=== PATIENT | male | born 1950 | race Caucasian/White ===

== ENCOUNTER 2018-02-28 11:35 | Observation (INO) | payer MEDICARE ==
[~2018-02-28] VITALS: Ht 183 cm; Wt 114.3 kg
[2018-02-28] VITALS (16 sets, daily range): BP systolic 86–197; BP diastolic 50–73; PULSE 54–83; TEMP 97.5–98.7
[~2018-02-28 11:35] MED LIST: ASPIRIN E.C. 8181 MG PO; FLOMAX 0.40.4 MG/CAP PO; HCTZ 25MG25 MG PO; METHYLSULFONYLMETHAN; MVI; NAPROXEN EC500 MG PO; SAW PALMETTO160 MG PO
[2018-02-28] MEDS ORDERED: TOPROL XL 25MG25 MG PO (12:35)
[2018-02-28] MEDS ORDERED: ZOCOR 20MG20 MG PO (12:35)
[2018-02-28] MEDS ORDERED: HYZAAR 50-12.1 UDTAB PO (12:35)
[2018-02-28 12:42] LABS: HEMOGLOBIN 11.4 g/dl (13.5-18.0); MEAN CELL VOLUME 84 fl (80.0-100.0); MEAN CORPUSCULAR HEMOGLOBIN 27 pg (27.0-31.0); MEAN CORPUSCULAR HGB CONC 32 g/dl (33.0-37.0); MEAN PLATELET VOLUME 9.9 fl (7.4-10.4); PLATELET COUNT 317 K/mm3 (130-400); RED BLOOD COUNT 4.22 M/mm3 (4.20-5.60); REDCELL DISTRIBUTION WIDTH-CV 15.9 % (11.5-14.5)
[2018-02-28 12:43] LABS: HEMATOCRIT 35.6 % (42.0-52.0); PROTHROMBIN TIME 11.8 SECONDS (9.7-12.8)
[2018-02-28 12:53] LABS: CREATININE, serum 1.41 mg/dL (0.66-1.25)
[2018-03-01] VITALS: BP 126/73; PULSE 65; TEMP 97.5
[2018-03-01 04:00] VITALS: BP 160/92; PULSE 83; TEMP 99.8
[2018-03-01 05:42] LABS: BASO % 0.5 % (0.0-2.0); EOS # 0.2 (0.0-0.7); EOS % 2.2 % (0-4.0); GRAN # 6.1 (1.4-6.5); GRAN % 69.1 % (42.2-75.2); HEMATOCRIT 33.2 % (42.0-52.0); HEMOGLOBIN 10.6 g/dl (13.5-18.0); LYMPH # 1.7 (1.2-3.4); MEAN CELL VOLUME 85 fl (80.0-100.0); MEAN CORPUSCULAR HEMOGLOBIN 27 pg (27.0-31.0); MEAN CORPUSCULAR HGB CONC 32 g/dl (33.0-37.0); MEAN PLATELET VOLUME 9.9 fl (7.4-10.4); MONO # 0.8 (0.1-0.6); MONO % 8.5 % (1.7-9.3); PLATELET COUNT 285 K/mm3 (130-400); RED BLOOD COUNT 3.93 M/mm3 (4.20-5.60)
[2018-03-01 05:54] LABS: CALCIUM 8.6 mg/dL (8.4-10.2); CREATININE, serum 1.23 mg/dL (0.66-1.25); POTASSIUM 3.6 mmol/L (3.4-5.0)
[2018-03-01 08:00] VITALS: BP 117/91; PULSE 83; TEMP 98
[2018-03-01] MEDS ORDERED: BRILINTA90 MG PO (09:54)
[2018-03-01] MEDS ORDERED: NITROSTAT0.4 MG/TAB SL (09:55)
[2018-03-01] MEDS ORDERED: LIPITOR20 MG PO (09:55)
[2018-03-01] MEDS ORDERED: TYLENOL 325MG325 MG PO (09:56)
== END 2018-03-01 11:20 | disposition home or self-care (01) ==
LOC: COL.CAR 11:35 → ICU 15:05 → COL.CAR 15:45 → ICU 15:46
PROVIDERS: Internal Medicine Cardiovascular Disease
DX: I25.110 Atherosclerotic heart disease of native coronary artery with unstable angina pectoris (principal); I48.0 Paroxysmal atrial fibrillation; E78.5 Hyperlipidemia, unspecified; I11.0 Hypertensive heart disease with heart failure; N18.9 Chronic kidney disease, unspecified; F17.210 Nicotine dependence, cigarettes, uncomplicated; Z79.82 Long term (current) use of aspirin; E66.9 Obesity, unspecified; Z83.3 Family history of diabetes mellitus; Z80.9 Family history of malignant neoplasm, unspecified
CPT/HCPCS: C9600; J0583; J1200; J1644; J2250; J3010; J7030; Q9967

== ENCOUNTER 2018-03-20 10:36 | Day surgery (SDC) | payer MEDICARE, OTHER ==
[2018-03-20] VITALS (569 sets, daily range): BP systolic 87–128; BP diastolic 56–85; PULSE 57–81; TEMP 97.8–98.1; O2SAT 88–100
[~2018-03-20] VITALS: Ht 183.2 cm; Wt 114.8 kg
[~2018-03-20 10:36] MED LIST changes: +BRILINTA90 MG PO; +HYZAAR 50-12.1 UDTAB PO; +LIPITOR20 MG PO; +NITROSTAT0.4 MG/TAB SL; +TOPROL XL 25MG25 MG PO; +TYLENOL 325MG325 MG PO; +ZOCOR 20MG20 MG PO
[2018-03-20 11:19] LABS: MEAN CELL VOLUME 84 fl (80.0-100.0); MEAN CORPUSCULAR HGB CONC 31 g/dl (33.0-37.0); MEAN PLATELET VOLUME 9.9 fl (7.4-10.4); PLATELET COUNT 433 K/mm3 (130-400); RED BLOOD COUNT 3.72 M/mm3 (4.20-5.60); REDCELL DISTRIBUTION WIDTH-CV 16.1 % (11.5-14.5)
[2018-03-20 11:21] LABS: HEMATOCRIT 31.2 % (42.0-52.0); HEMOGLOBIN 9.8 g/dl (13.5-18.0); MEAN CORPUSCULAR HEMOGLOBIN 26 pg (27.0-31.0)
[2018-03-20 11:24] LABS: ALBUMIN 4.2 gm/dL (3.5-5.0); BILIRUBIN,TOTAL 0.6 mg/dL (0.0-1.0); CALCIUM 9.2 mg/dL (8.4-10.2); CREATININE, serum 1.34 mg/dL (0.66-1.25); MAGNESIUM 2.1 mg/dL (1.6-2.3); POTASSIUM 3.9 mmol/L (3.4-5.0); TOTAL PROTEIN 7.5 gm/dL (6.4-8.2)
[2018-03-20 11:27] LABS: INR 1.1 (0.8-3.0); PROTHROMBIN TIME 12.6 SECONDS (9.7-12.8)
[2018-03-20] MEDS ORDERED: LIPITOR20 MG PO (11:29)
[2018-03-20] MEDS ORDERED: IMDUR 30MG30 MG/TAB PO (11:35)
[2018-03-20] MEDS ORDERED: BRILINTA90 MG PO (11:35)
[2018-03-21] VITALS (652 sets, daily range): BP systolic 107–133; BP diastolic 68–82; PULSE 66–74; TEMP 97.6; O2SAT 92–100
[2018-03-21 07:20] LABS: BASO % 0.6 % (0.0-2.0); EOS # 0.3 (0.0-0.7); EOS % 3.6 % (0-4.0); GRAN # 4.9 (1.4-6.5); LYMPH # 1.2 (1.2-3.4); LYMPH % 16.4 % (20.0-51.0); MEAN CELL VOLUME 83 fl (80.0-100.0); MEAN CORPUSCULAR HGB CONC 32 g/dl (33.0-37.0); MEAN PLATELET VOLUME 9.8 fl (7.4-10.4); MONO # 0.7 (0.1-0.6); MONO % 9.7 % (1.7-9.3); RED BLOOD COUNT 3.31 M/mm3 (4.20-5.60); REDCELL DISTRIBUTION WIDTH-CV 16.2 % (11.5-14.5)
[2018-03-21 07:24] LABS: HEMATOCRIT 27.6 % (42.0-52.0); HEMOGLOBIN 8.8 g/dl (13.5-18.0); MEAN CORPUSCULAR HEMOGLOBIN 27 pg (27.0-31.0); PLATELET COUNT 320 K/mm3 (130-400)
[2018-03-21 07:26] LABS: CALCIUM 8.8 mg/dL (8.4-10.2); CREATININE, serum 1.23 mg/dL (0.66-1.25); MAGNESIUM 2.2 mg/dL (1.6-2.3); POTASSIUM 4.3 mmol/L (3.4-5.0)
== END 2018-03-21 12:45 | disposition home or self-care (01) ==
LOC: COL.CAR 10:36 → ICU 12:58 → COL.CAR 14:24 → ICU 14:24 → COL.CAR 03-21 12:45 → ICU 03-21 12:45
PROVIDERS: Internal Medicine Cardiovascular Disease
DX: I25.110 Atherosclerotic heart disease of native coronary artery with unstable angina pectoris (principal); I10 Essential (primary) hypertension; Z95.5 Presence of coronary angioplasty implant and graft; E78.5 Hyperlipidemia, unspecified; Z79.82 Long term (current) use of aspirin; Z79.899 Other long term (current) drug therapy; Z87.891 Personal history of nicotine dependence
CPT/HCPCS: C9600; J0583; J1200; J1644; J2250; J3010; J7040; Q9967

== ENCOUNTER 2018-03-30 12:34 | Inpatient (IN) | payer MEDICARE, OTHER ==
[2018-03-30] VITALS (7 sets, daily range): BP systolic 96–138; BP diastolic 44–94; PULSE 63–112; TEMP 97.7–98.8
[~2018-03-30] VITALS: Ht 180.3 cm; Wt 121.9 kg
[~2018-03-30 12:34] MED LIST changes: +IMDUR 30MG30 MG/TAB PO
[2018-03-30 13:00] LABS: BASO % 0.5 % (0.0-2.0); EOS # 0.2 (0.0-0.7); EOS % 2.3 % (0-4.0); GRAN # 6.7 (1.4-6.5); GRAN % 75.8 % (42.2-75.2); LYMPH # 1.3 (1.2-3.4); LYMPH % 14.2 % (20.0-51.0); MEAN CELL VOLUME 84 fl (80.0-100.0); MEAN CORPUSCULAR HGB CONC 31 g/dl (33.0-37.0); MEAN PLATELET VOLUME 9.6 fl (7.4-10.4); MONO # 0.6 (0.1-0.6); MONO % 6.5 % (1.7-9.3); PLATELET COUNT 385 K/mm3 (130-400); RED BLOOD COUNT 2.91 M/mm3 (4.20-5.60); REDCELL DISTRIBUTION WIDTH-CV 16.2 % (11.5-14.5)
[2018-03-30 13:02] LABS: HEMATOCRIT 24.5 % (42.0-52.0); HEMOGLOBIN 7.5 g/dl (13.5-18.0); MEAN CORPUSCULAR HEMOGLOBIN 26 pg (27.0-31.0)
[2018-03-30 13:13] LABS: ALANINE AMINOTRANSFERASE 25 U/L (21-72); ALKALINE PHOSPHATASE 98 U/L (50-136); ANION GAP 10 mmol/L (7-16); AST,SGOT 22 U/L (15-37); BILIRUBIN,TOTAL 0.5 mg/dL (0.0-1.0); BLOOD UREA NITROGEN 15 mg/dL (9-20); CALCIUM 8.9 mg/dL (8.4-10.2); CARBON DIOXIDE 21 mmol/L (22-30); CHLORIDE 109 mmol/L (98-107); CREATININE, serum 1.24 mg/dL (0.66-1.25); GLUCOSE 119 mg/dL (74-106); POTASSIUM 3.9 mmol/L (3.4-5.0); SODIUM 140 mmol/L (137-145); TOTAL PROTEIN 7.1 gm/dL (6.4-8.2)
[2018-03-30 13:25] LABS: TROPONIN-I < 0.012 ng/mL (0.000-0.034)
--- NOTE | 2018-03-30 18:18 | NUR ---
Completed intake with PT; assessment completed during intake. Lungs CTA bilaterally, HRRR, A&Ox3, bowel sounds audible x4, NKA, admitted on RA, IND in all cares, IV RT FA with NS @ 125mg, full code, and arrived on clear liquid diet. PT admitted with anemia and chest pain. PT has history of heart cath with stent placement approximately 1 week ago. Ortho static BP+ result in ER. Type/cross completed for pending 1 unit blood order. PT had c/o dizziness, weakness, soreness, and pressure in chest. Minimal non-pitting edema to bilateral LE. Accult blood + in stool specimen. Plan to observe for 2-3days with new cardiology and gastrology consults; pending blood administration. Patient arrived on floor to room 310 at approximately 1705. CDA
--- NOTE | 2018-03-30 18:45 | NUR ---
tele called, pt went into AFIB with RVR, this nurse odered an EKG NOW. vitals were assessed and stable. pt has no signs or symtoms. EKG came back normal sinus rythm . will coninue to monitor.
--- NOTE | 2018-03-30 22:00 | NUR ---
Consent signed- Blood transfusion started at 60cc/hr-nurse in room with pt for the first 15 minutes, will continue to monitor, VSS
--- NOTE | 2018-03-30 23:10 | NUR ---
Pt resting. no c/o pain or soa. pt is recieving blood transfursion. will continue to monitor. shift assessment complete. no needs at this time, calll light in reach
[2018-03-31] VITALS (9 sets, daily range): BP systolic 102–139; BP diastolic 56–71; PULSE 55–83; TEMP 97.6–98.6
--- NOTE | 2018-03-31 00:17 | NUR ---
Blood completed- no adverse reactions- pt tolerated well.
[2018-03-31 01:06] LABS: HEMOGLOBIN 7.7 g/dl (13.5-18.0)
[2018-03-31 01:07] LABS: HEMATOCRIT 24.5 % (42.0-52.0)
[2018-03-31 06:07] LABS: BASO % 0.6 % (0.0-2.0); EOS # 0.2 (0.0-0.7); EOS % 3.6 % (0-4.0); GRAN # 4.3 (1.4-6.5); GRAN % 65.1 % (42.2-75.2); LYMPH # 1.3 (1.2-3.4); LYMPH % 19.9 % (20.0-51.0); MEAN CELL VOLUME 85 fl (80.0-100.0); MEAN CORPUSCULAR HGB CONC 31 g/dl (33.0-37.0); MEAN PLATELET VOLUME 9.7 fl (7.4-10.4); MONO # 0.7 (0.1-0.6); MONO % 9.9 % (1.7-9.3); PLATELET COUNT 307 K/mm3 (130-400); RED BLOOD COUNT 2.99 M/mm3 (4.20-5.60); REDCELL DISTRIBUTION WIDTH-CV 16.1 % (11.5-14.5)
[2018-03-31 06:08] LABS: HEMATOCRIT 25.5 % (42.0-52.0); HEMOGLOBIN 7.8 g/dl (13.5-18.0); MEAN CORPUSCULAR HEMOGLOBIN 26 pg (27.0-31.0)
[2018-03-31 06:22] LABS: ANION GAP 5 mmol/L (7-16); BLOOD UREA NITROGEN 15 mg/dL (9-20); CALCIUM 8.8 mg/dL (8.4-10.2); CARBON DIOXIDE 24 mmol/L (22-30); CHLORIDE 111 mmol/L (98-107); CREATININE, serum 1.19 mg/dL (0.66-1.25); GLUCOSE 132 mg/dL (74-106); POTASSIUM 4.5 mmol/L (3.4-5.0); SODIUM 140 mmol/L (137-145)
[2018-03-31 06:29] LABS: TROPONIN-I < 0.012 ng/mL (0.000-0.034)
--- NOTE | 2018-03-31 08:56 | NUR ---
Completed morning assessment. PT denied pain or discomfort during morning assessment. PT able to answer all assessment question; PT able to take morning medication without complaints. PT continues to follow clear liquid diet. Pending administration of 1 unit of blood. PT denies questions or concern about pending blood administration. A&Ox3, Lungs CTA, BS audible x4, ind in room, 20g IV to RT wrist patent with 30mL/H NS running, and continent of both bowel and bladder. PT able to verbalize concerns, although denies questions or pain at time of exit. Will continue to monitor.
--- NOTE | 2018-03-31 09:44 | NUR ---
1 unit of 0 neg blood started per order; VS and blood verified with second nurse. Blood intiated at 60mL/h with NS at 30mL/h to 20G RT wrist IV; PT tolerated well during first 15 minutes. Remained with patient for observation during first 20 minutes of administration. VS documented; rate increased to 100mL/h after initial 15 minute period. CDA
--- NOTE | 2018-03-31 12:25 | NUR ---
PT completed one unit 0 NEG blood transfusion; no adverse reactions or reported discomforts. Patient tolerating post transfusion cares well. Pending 4 hour post CBC draw at approximately 1630. Will continue to monitor. CDA
--- NOTE | 2018-03-31 16:06 | NUR ---
Plan: To return home alone. Not opposed to homehealth services if needed. Action: OCO is Dr. Karl Aguilar. RX obt from [facility] in [place].EMr contact [place] . RX obta through [facility]. No DME reported. Alt Contact: Angi Aleman . Action: No addtional service needs identified.
--- NOTE | 2018-03-31 16:26 | NUR ---
PT resting well in upright position in chair. Spouse stopped in to discuss medication recon; no changes made at this time. Verfied contact information with spouse. No significant changes during care time to this point. Will continue to monitor and administer medication as scheduled. CDA
--- NOTE | 2018-03-31 16:40 | NUR ---
PT tolerated care well remainder of day. No reported or observed adverse effects to blood received. RT FA 20G IV running NS at 30mL/H; site has no S/S of redness, warmth, or swelling. PT toileting well; pending GI colon/endoscopy on Monday for investigation of occult blood in stool. No further concerns at this time. Will continue to monitor and administer medication as ordered. CDA
[2018-03-31 16:44] LABS: BASO % 0.6 % (0.0-2.0); EOS # 0.2 (0.0-0.7); EOS % 3.6 % (0-4.0); GRAN # 3.9 (1.4-6.5); GRAN % 60.9 % (42.2-75.2); LYMPH # 1.6 (1.2-3.4); MEAN CELL VOLUME 84 fl (80.0-100.0); MEAN CORPUSCULAR HGB CONC 32 g/dl (33.0-37.0); MEAN PLATELET VOLUME 9.6 fl (7.4-10.4); MONO # 0.6 (0.1-0.6); MONO % 9.1 % (1.7-9.3); PLATELET COUNT 297 K/mm3 (130-400)
[2018-03-31 16:47] LABS: HEMATOCRIT 28.7 % (42.0-52.0); HEMOGLOBIN 9.1 g/dl (13.5-18.0); MEAN CORPUSCULAR HEMOGLOBIN 27 pg (27.0-31.0)
--- NOTE | 2018-03-31 22:00 | NUR ---
pt resting in bed A+Ox4. reports no pain. shift assessment complete. no needs at this time. call light reach
[2018-04-01 01:17] VITALS: BP 132/61; PULSE 65; TEMP 97.8
[2018-04-01 03:22] VITALS: BP 137/78; PULSE 70; TEMP 97.7
--- NOTE | 2018-04-01 05:46 | NUR ---
pt had an unevenful night. reported sleeping off an on throughout night. no pain. no neeeds at this time. call light in reach
[2018-04-01 07:04] LABS: MEAN CELL VOLUME 85 fl (80.0-100.0); MEAN CORPUSCULAR HGB CONC 31 g/dl (33.0-37.0); MEAN PLATELET VOLUME 9.8 fl (7.4-10.4); PLATELET COUNT 305 K/mm3 (130-400); RED BLOOD COUNT 3.35 M/mm3 (4.20-5.60); REDCELL DISTRIBUTION WIDTH-CV 16.1 % (11.5-14.5)
[2018-04-01 07:06] LABS: HEMATOCRIT 28.4 % (42.0-52.0); HEMOGLOBIN 8.9 g/dl (13.5-18.0); MEAN CORPUSCULAR HEMOGLOBIN 27 pg (27.0-31.0)
[2018-04-01 07:22] LABS: CALCIUM 8.6 mg/dL (8.4-10.2); CREATININE, serum 1.18 mg/dL (0.66-1.25)
[2018-04-01 07:49] VITALS: BP 126/67; PULSE 64; TEMP 98.2
--- NOTE | 2018-04-01 10:09 | NUR ---
Pt resting in bed with call light within reach; assessment complete and charted. Plan for EGD/Colonoscopy tomorrow. Orders received from Dr. Harley over the phone. Denies further needs at this time; will continue to monitor.
[2018-04-01 11:22] VITALS: BP 127/70; PULSE 59; TEMP 97.6
[2018-04-01 15:12] VITALS: BP 129/73; PULSE 62; TEMP 98.3
--- NOTE | 2018-04-01 17:28 | NUR ---
Pt resting in bed with call light within reach. Plan for EGD/Colonoscopy tomorrow at 1300. Anesthesia and supervisor cook house notified earlier today. Bowel prep started per orders. Pt denies further needs.
--- NOTE | 2018-04-01 19:03 | NUR ---
Report given to ERNST Pike. Pt resting in bed.
[2018-04-01 20:33] VITALS: BP 132/84; PULSE 75; TEMP 98.1
[2018-04-02 00:16] VITALS: BP 135/83; PULSE 68; TEMP 97.5
--- NOTE | 2018-04-02 01:50 | NUR ---
THE PT WAS BEDRESTING WITH TV ON THE SHIFT BEGAN. HE SLOWLY STEADILY DRINKS HIS BOWEL PREP, REPORTED MULTIPLE WATERY, BLACKISH GREEN ELIMINATIONS. HE IS AWARE THAT HE WILL HAVE THE EGD\COLONOSCOPY ABOUT 1 PM TOMORROW AND THAT HIS PREP NEEDS TO BE FINISHED IN A TIMELY MANNNER. NS AT 30CC TO RIGHT FORE ARM. VSS, TELE CONTINUES WITH SR BBB. HE APPEARS TO GET ADEQUATE SLEEP.
--- NOTE | 2018-04-02 03:14 | NUR ---
THE PT VERBALIZED THAT HIS LAST BOWEL ELIMINATION WAS ABOUT 0030, CONTINUED BLACKISH WATER. SPLIT PREP WILL CONTINUE IN THE AM.
[2018-04-02 03:54] VITALS: BP 125/67; PULSE 77
--- NOTE | 2018-04-02 05:06 | NUR ---
BEDRESTING WITH EYES CLOSED, RESP EVEN
--- NOTE | 2018-04-02 07:21 | NUR ---
THE PT WAS INTRODUCED TO [facility], REPORT EXCHANGED. THE PT APPEARS TO HAVE HAD A GOOD NIGHT.
--- NOTE | 2018-04-02 08:02 | NUR ---
Assessment complete.patient awake,a/ox4.denies pain or discomfort at this time.breathing even and unlabored.all meds given.patient continues on bowel prep for EGD colonscopy.patient denies bloody stools.no concerns voiced at this time.call light in reach
[2018-04-02 08:16] VITALS: BP 125/69; PULSE 61; TEMP 98
[2018-04-02 10:06] LABS: MEAN CELL VOLUME 85 fl (80.0-100.0); MEAN CORPUSCULAR HGB CONC 31 g/dl (33.0-37.0); MEAN PLATELET VOLUME 9.5 fl (7.4-10.4); PLATELET COUNT 290 K/mm3 (130-400); RED BLOOD COUNT 3.29 M/mm3 (4.20-5.60)
[2018-04-02 10:40] LABS: HEMATOCRIT 28.1 % (42.0-52.0); HEMOGLOBIN 8.7 g/dl (13.5-18.0); MEAN CORPUSCULAR HEMOGLOBIN 26 pg (27.0-31.0)
[2018-04-02 12:16] VITALS: BP 131/76; PULSE 61; TEMP 97.8
--- NOTE | 2018-04-02 15:32 | NUR ---
patient returned to room from OR.resting in bed at this time.denies any needs.will continue to monitor.call light in reach
[2018-04-02 16:58] VITALS: BP 123/79; PULSE 79; TEMP 98
--- NOTE | 2018-04-02 18:41 | NUR ---
report given to ERNST Wills.patient reports one dark stool.no bright red stool noted.no other concerns voiced.
[2018-04-02 19:08] VITALS: BP 139/80; PULSE 77; TEMP 98.5
--- NOTE | 2018-04-02 22:11 | NUR ---
pt resting in bed. reports no pain no soa. pt reports liquid stool at 0900 today. shift assessment complete. pt reports no needs at this time. call light in reach.
[2018-04-03] VITALS (7 sets, daily range): BP systolic 109–153; BP diastolic 55–82; PULSE 56–92; TEMP 97.4–98.5
--- NOTE | 2018-04-03 01:39 | NUR ---
pt resting in bed. reports no pain. ERNST Verdin started new IV in left hand, removed IV, catheter intact. reports no needs, call light inreach
--- NOTE | 2018-04-03 05:42 | NUR ---
pt had an uneventful night. no pain. no needs at this time. call light in reach
[2018-04-03 06:15] LABS: MEAN CELL VOLUME 84 fl (80.0-100.0); MEAN CORPUSCULAR HGB CONC 32 g/dl (33.0-37.0); MEAN PLATELET VOLUME 9.9 fl (7.4-10.4); PLATELET COUNT 335 K/mm3 (130-400); RED BLOOD COUNT 3.46 M/mm3 (4.20-5.60); REDCELL DISTRIBUTION WIDTH-CV 16.3 % (11.5-14.5)
[2018-04-03 06:17] LABS: HEMATOCRIT 29.2 % (42.0-52.0); HEMOGLOBIN 9.2 g/dl (13.5-18.0); MEAN CORPUSCULAR HEMOGLOBIN 27 pg (27.0-31.0)
--- NOTE | 2018-04-03 07:18 | NUR ---
reports given to ERNST Carranza
--- NOTE | 2018-04-03 07:33 | NUR ---
Assessment complete.patient awake,alert and oriented x4.denes pain and discomfort at this time.patient took all meds.remains on a clear liquid diet.VSS.no bloody Bowel movement reported at this time.will continue to monitor.call light in reach
--- NOTE | 2018-04-03 17:55 | NUR ---
patient resting in bed at this time.denies any concerns.Oncologist rounded on patient today.patient reports having loose stools x2.reports that bowel movements were dark.VSS.no other concerns voiced at this time.call light in reach
--- NOTE | 2018-04-03 19:08 | NUR ---
report given to ERNST Wills
--- NOTE | 2018-04-03 22:13 | NUR ---
PT RESTING IN CHAIR. NO PAIN. NO NEEDS AT THIS TIME. CALL LIGHT IN REACH
[2018-04-04 02:57] VITALS: BP 155/77; PULSE 71; TEMP 97.3
--- NOTE | 2018-04-04 05:32 | NUR ---
pt had an uneventful night. slept some during the night. no complaints of pain. no needs at this time. call light in reach
[2018-04-04 06:14] LABS: MEAN CELL VOLUME 84 fl (80.0-100.0); MEAN CORPUSCULAR HGB CONC 32 g/dl (33.0-37.0); MEAN PLATELET VOLUME 10.1 fl (7.4-10.4); PLATELET COUNT 299 K/mm3 (130-400); RED BLOOD COUNT 3.21 M/mm3 (4.20-5.60); REDCELL DISTRIBUTION WIDTH-CV 16.1 % (11.5-14.5)
[2018-04-04 06:22] LABS: HEMATOCRIT 26.8 % (42.0-52.0); HEMOGLOBIN 8.5 g/dl (13.5-18.0); MEAN CORPUSCULAR HEMOGLOBIN 26 pg (27.0-31.0)
[2018-04-04 08:57] VITALS: BP 134/82; PULSE 63; TEMP 98.1
--- NOTE | 2018-04-04 09:00 | NUR ---
Assessment complete. Pt is AXO X3, denies having any pain at this time. Breathing is even and unlabored on room air. Tele on. LH INT flushes easily, remains free of complications, and is CDI. Pt is sitting up in the bed watching TV at this time and he denies further needs. Call light within reach, will continue to monitor.
[2018-04-04] MEDS ORDERED: PROTONIX 40MG T40 MG PO (10:08)
[2018-04-04] MEDS ORDERED: TOPROL XL 25MG25 MG PO (10:08)
--- NOTE | 2018-04-04 10:13 | NUR ---
The patient is to discharge back home today, 04/04. SW presented and explained the IM form to the patient. The patient verbalized understanding, signed, and he was provided a copy. No additional needs at this time.
[2018-04-04 13:06] VITALS: BP 122/77; PULSE 75; TEMP 97.8
--- NOTE | 2018-04-04 14:39 | NUR ---
Pt discharged at this time. LH INT discontinued with the catheter tip intact. Education regarding a soft diet, dysphagia, normocyic normochromic anemia, metoprolol, protonix, and s/sx's of an adverse reaction provided. Pt verbalizes understanding. Pt escourted out via WC with tech. Calin
== END 2018-04-04 14:40 | disposition home or self-care (01) | DRG 375 ==
LOC: COL.ER 12:34 → MEDICAL 15:20
PROVIDERS: Emergency Medicine; Internal Medicine; Internal Medicine Gastroenterology; Physician Assistant; ADMIT Family Medicine
PROC: 0W3P8ZZ Control Bleeding in Gastrointestinal Tract, Via Natural or Artificial Opening Endoscopic (ICD-10-PCS; 2018-04-02)
PROC: 0DB38ZX Excision of Lower Esophagus, Via Natural or Artificial Opening Endoscopic, Diagnostic (ICD-10-PCS; principal; 2018-04-02 12:30)
PROC: 0DBK8ZX Excision of Ascending Colon, Via Natural or Artificial Opening Endoscopic, Diagnostic (ICD-10-PCS; 2018-04-02 12:30)
DX: C15.5 Malignant neoplasm of lower third of esophagus (principal); D62 Acute posthemorrhagic anemia; I12.9 Hypertensive chronic kidney disease with stage 1 through stage 4 chronic kidney disease, or unspecified chronic kidney disease; N18.2 Chronic kidney disease, stage 2 (mild); D12.2 Benign neoplasm of ascending colon; I25.10 Atherosclerotic heart disease of native coronary artery without angina pectoris; D50.0 Iron deficiency anemia secondary to blood loss (chronic); Z95.5 Presence of coronary angioplasty implant and graft; E78.5 Hyperlipidemia, unspecified; Z87.891 Personal history of nicotine dependence; Z23 Encounter for immunization
CPT/HCPCS: OP; 99222-AI; 99232-AI; 99239; C9113; G0378; G8978-GP; G8979-GP; G8996-GN; G8997-GN; J2704; J7030; P9016

== ENCOUNTER → 2018-07-09 | Outpatient (CLI) | payer MEDICARE, OTHER ==
[~2018-07-09] VITALS: Ht 180.3 cm; Wt 109.6 kg
[~2018-07-09] MED LIST changes: +ISORDIL TITRADO30 MG PO; +PLAVIX 75MG TAB75 MG PO; +PROTONIX 40MG T40 MG PO
[2018-07-09 12:14] VITALS: BP 138/82; PULSE 73
[2018-07-09 13:00] VITALS: BP 138/90; PULSE 84
--- NOTE | 2018-07-09 13:00 | NUR ---
PT PLACED ON THE TABLE AND MONITORING EQUIPMENT PLACED. TIMEOUT DONE.
[2018-07-09 13:15] VITALS: BP 126/82; PULSE 62
--- NOTE | 2018-07-09 13:15 | NUR ---
PT DOING WELL. DENIES PAIN.
[2018-07-09 13:20] VITALS: BP 142/94; PULSE 65
--- NOTE | 2018-07-09 13:20 | NUR ---
PT DOING FINE. NO PAIN.
[2018-07-09 13:25] VITALS: BP 130/91; PULSE 70
--- NOTE | 2018-07-09 13:25 | NUR ---
PROCEDURE COMPLETED. SITE IS [facility]. BANDAIDE TO SITE.
[2018-07-09 13:40] VITALS: BP 136/76; PULSE 63
--- NOTE | 2018-07-09 14:25 | NUR ---
PT TAKEN TO POV IN WHEELCHAIR. SITE IS [facility]. PT STATES HE HAS HIS DC INSTRUCTIONS
== END ==
LOC: COL.RAD 11:36
DX: C15.5 Malignant neoplasm of lower third of esophagus (principal); I10 Essential (primary) hypertension; M79.89 Other specified soft tissue disorders
CPT/HCPCS: 32108